=== PATIENT | male | born 1990 ===

== ENCOUNTER 2017-05-07 22:54 | Emergency (ER) | payer OTHER | END 2017-05-07 22:58 | disposition left against medical advice (07) | LOC: C.EDB 22:56 | DX: I10 Essential (primary) hypertension (principal) ==

== ENCOUNTER → 2017-05-07 | Outpatient (CLI) | payer OTHER | END | disposition home or self-care (01) | LOC: C.LAB 22:22 | DX: Z02.83 Encounter for blood-alcohol and blood-drug test (principal) ==